=== PATIENT | female | born 1955 | race Caucasian/White ===

== ENCOUNTER → 2017-10-16 | Day surgery (SDC) | payer OTHER ==
--- NOTE | 2017-10-16 10:41 | RAD REPORT ---
EXAM DESCRIPTION: US - Guided FNA Non Breast - 10/16/2017 10:24 am CLINICAL HISTORY: E04.2 COMPARISON: Thyroid Para Parotid Gland dated 09/11/2017 FINDINGS: Preoperative diagnosis: 3 cm left thyroid nodule. Post operative diagnosis: Same. Conscious Sedation: None Fluoroscopy time: None Contrast used: None Estimated blood loss: Minimal Specimens:25 gauge FNA needles x4 The left neck was prepped and draped in the usual sterile fashion. 1% lidocaine was infiltrated into the subcutaneous tissues for local anesthesia. Real time ultrasound scanning of the left neck demonst rated 3 cm deep posterior nodule. Several additional small nodules are seen. Initial request for FNA procedure indicated isthmus nodule as well. However, on real-time position scanning, only a 5 mm nodu le was detected in the isthmus which was not accessible for FNA procedure at this time. This may be f ollowed up with routine thyroid surveillance sonography. Under ultrasound guidance, using multiple 25 gauge FNA needles, 4 specimens were obtained of the dominant nodule and sent to pathology for evalua tion. There were no complications. IMPRESSION: Successful ultrasound-guided FNA of the dominant left thyroid nodule as detailed above.
== END ==
LOC: FNA 09:26
PROVIDERS: ATTEND Otolaryngology
PROC: 07D Lymphatic and Hemic Systems, Extraction (ICD-10-PCS; principal; 2017-10-16)
PROC: BG44ZZZ Ultrasonography of Thyroid Gland (ICD-10-PCS; 2017-10-16)
DX: E04.2 Nontoxic multinodular goiter (principal); E04.1 Nontoxic single thyroid nodule
CPT/HCPCS: 76942; 88162; 88305

== ENCOUNTER 2022-04-25 05:57 | Observation (INO) | payer OTHER ==
[2022-04-19 10:17] LABS: Specific Gravity 1.007 (1.005-1.030); Urine Bilirubin NEGATIVE (Negative); Urine Blood Negative (Negative); Urine Clarity Clear (Clear); Urine Color Light-Yellow (Yellow); Urine Glucose NEGATIVE (Negative); Urine Protein NEGATIVE (Negative); Urine Urobilinogen Normal (Normal); Urine pH 6.5 (5.0-7.0)
[2022-04-19 10:23] LABS: Absolute Lymphocytes (CBC) 1.6 K/uL (0.7-4.9); Hematocrit 41.6 % (36.0-45.0); Lymphocytes % 34.4 % (15.3-44.8); MCV 94.7 fL (80-100); MPV 8.1 fL (7.6-11.3); RBC Red Blood Cell Count 4.39 M/uL (3.86-4.86)
[2022-04-19 10:25] LABS: Protime INR 0.91
[2022-04-19 10:32] LABS: Potassium 4.3 mmol/L (3.5-5.1)
[2022-04-24 11:53] LABS: SARS-CoV-2 Antigen Rapid Res Negative (Negative)
[2022-04-25] MEDS ORDERED: SCOPOLAMINE HYDROBROMIDE PATCH TD ONE (06:40)
[2022-04-25] MEDS: Ringers Lactate 1,000 ML IV ONE ×4 (06:50→11:56)
[2022-04-25] MEDS ORDERED: propofoL 200 MG/20 ML VIAL IV ONE (06:54)
[2022-04-25] MEDS ORDERED: KETAMINE HCL 500 MG/5 ML VIAL ONE (06:54)
[2022-04-25] MEDS ORDERED: FENTANYL CITR 250 MCG/5 ML ONE ×2 (06:55→09:34)
[2022-04-25] MEDS ORDERED: dexAMETHasone 10 MG/ML VIAL ONE (06:55)
[2022-04-25] MEDS ORDERED: LIDOCAINE 2% MPF 5 ML VIAL ONE (06:55)
[2022-04-25] MEDS ORDERED: MIDAZOLAM HCL 2 MG/2 ML INJ ONE (06:55)
[2022-04-25] MEDS ORDERED: NS 0.9% VIAL 20 ML ONE (06:55)
[2022-04-25] MEDS ORDERED: ONDANSETRON 4 MG/2 ML VIAL ONE (06:55)
[2022-04-25] MEDS ORDERED: ROCURONIUM 50 MG/5 ML VIAL IV ONE (06:55)
[2022-04-25] MEDS ORDERED: CEFAZOLIN 3 GM in NA CHLORIDE 0.9% 100 ML IVPB ONE (07:00)
[2022-04-25] MEDS: BUPIVACAINE 0.25% PF 30 ML VIAL ONE ×2 (07:39→08:56)
[2022-04-25] MEDS: CEFAZOLIN 3 GM in NA CHLORIDE 0.9% 100 ML IVPB ONE ×2 (07:40→08:13)
[2022-04-25] MEDS ORDERED: NA CHLORIDE 0.9% 100 ML IV ONE (08:39)
[2022-04-25] MEDS ORDERED: Ringers Lactate 1,000 ML IV ONE ×2 (09:23→11:19)
[2022-04-25] MEDS: VASOPRESSIN 20 UNIT/ML VIAL ONE ×2 (09:35→12:10)
[2022-04-25] MEDS ORDERED: CEFAZOLIN SODIUM 1 GM/VIAL ONE ×2 (11:21→11:52)
[2022-04-25] MEDS ORDERED: EPHEDRINE SULF 50 MG/ML VIAL ONE (13:03)
[2022-04-25] MEDS ORDERED: Mastisol Adhesive Liq ONE (13:26)
[2022-04-25] MEDS ORDERED: ONDANSETRON 4 MG/2 ML VIAL IV PRN (13:34)
[2022-04-25] MEDS ORDERED: HYDROCODONE/APAP 5/325 MG TAB PO PRN (13:34)
--- NOTE | 2022-04-25 13:40 | P.BOP ---
Preoperative diagnosis: Stage 3 uterovaginal/ ant/posterior wall prolapse, JASE Postoperative diagnosis: same, endometriosis Primary procedure: TLH BSO, endo rx, USLS colpopexy, posterior repair, perineorrhaphy Secondary procedure: TO MUS (TVT-O) cysto Probation And Parole Officer: Elise Miramontes Estimated blood loss: 100 Specimen: uterus tubes ovaries, endometriosis Findings: 0/+2/-2/4.5/mod/7/0/+1/-3, extensive endometriosis Anesthesia: General Complications: None Drain(s): Urinary catheter Implants: TVT-O Transferred to: Recovery Room Condition: Good
--- OUTSIDE RECORDS SUMMARY | 2022-04-25 14:19 | XMS REPORT | Continuity of Care Document ---
:1955 Author Organization [facility] t Address [address] [place] [address] Care Team Providers Name Role Phone Asked, No Pcp Primary Care Physician Unavailable HEIDY ESCALANTE Attending Clinician Unavailable Payers Payer Name Policy Type Policy Number Effective Date Expiration Date S penny COVID VACCINE [id number] 2020-04-23 00:00:00 ADMIN / TESTING Problems This patient has no known problems. Allergies, Adverse Reactions, Alerts Allergy Allergy Status Severity Reaction(s) Onset Inactive Treating Comm ents Source Name Type Date Date Clinician Penicill Propensi Active Unknown Metho di ins ty to Reaction 05-24 st adverse 00:00: [facility]osp[facility] reaction 00 l s to drug Social History Social Habit Start Date Stop Date Quantity Comments Source Sex Assigned At [birth year] [facility] 00:00:00 00:00:00 Smoking Status Start Date Stop Date Source Tobacco smoking consumption unknown [facility] Medications This patient has no known medications. Immunizations Ordered Immunization Filled Immunization Date Status Commen ts Source Name Name Covid-19 Vaccine 2020-08-[address] [facility] MRNA (PF) 12yr+ 00:00:00 Medical C enter (Pfizer/BioNTech)(IM M601) Covid-19 Vaccine 2020-04-[address] [facility] MRNA (PF) 12yr+ 00:00:00 Medical C enter (Pfizer/BioNTech)(IM M601) Procedures This patient has no known procedures. Plan of Care Planned Activity Planned Date Details Comments Source Future Scheduled 2028-12-18 DTAP/TDAP/TD VACCINES [facility] 00:00:00 (2 - Td or Tdap) [code Medic al Center = DTAP/TDAP/TD VACCINES (2 - Td or Tdap)] Future Scheduled 2022-04-[address] [facility] 00:00:00 (12+) [code = Medical Center DEPRESSION SCREENING (12+)] Future Scheduled 2022-04-02 FALLS RISK SCREENING [facility] 00:00:00 [code = FALLS RISK Medical C enter SCREENING] Future Scheduled 2022-03-19 65+ [facility] 17:29:01 VACCINE (1 - PCV) [code = 65+ PNEUMOCOCCAL VACCINE (1 - PCV)] Future Scheduled 2022-03-19 INFLUENZA VACCINE [facility] Test 17:29:01 [code = INFLUENZA VACCINE] Future Scheduled 2022-03-19 COVID-19 VACCINE (#1) [facility] Test 17:29:01 [code = COVID-19 VACCINE (#1)] Future Scheduled 2022-03-19 Hepatitis C screening [facility] Test 17:29:01 (procedure) [code = 709202083] Future Scheduled 2022-03-19 BREAST CANCER [facility] Test 17:29:01 SCREENING [code = BREAST CANCER SCREENING] Future Scheduled 2022-03-19 COLONOSCOPY SCREENING [facility] Test 17:29:01 [code = COLONOSCOPY SCREENING] Future Scheduled 2022-03-19 SHINGLES VACCINES (1 [facility] Test 17:29:01 of 2) [code = SHINGLES VACCINES (1 of 2)] Future Scheduled 2021-12-01 INFLUENZA VACCINE (#1) [facility] 00:00[facility]00 [code = INFLUENZA Medical Ce nter VACCINE (#1)] Future Scheduled 2021-01-03 COVID-19 VACCINE (3 - [facility] 00:[facility]:00 Booster for Pfizer Medical C enter series) [code = COVID-19 VACCINE (3 - Booster for Pfizer series)] Future Scheduled 2020 PNEUMOCOCCAL 65+ YRS [facility] 00:00:00 (1 - PCV) [code = Medical Ce nter PNEUMOCOCCAL 65+ YRS (1 - PCV)] Future Scheduled 2015-07-15 SHINGLES VACCINES ([address] [facility] 00:00:00 of 3) [code = SHINGLES Medic al Center VACCINES (2 of 3)] Future Scheduled 1973 HEPATITIS C SCREENING [facility] 00:00:00 [code = HEPATITIS C Medical Center SCREENING] Future Scheduled [address] [facility] 00:00:00 Counseling and Medical Cente r Screening (12+) [code = Tobacco Cessation Counseling and Screening (12+)] Future Scheduled 1955 Sigmoidoscopy [code = [facility] 00:[facility] Sigmoidoscopy] Medical Cente r Future Scheduled [address] [facility] 00:[facility] breast (procedure) [code = 996363337] Future Scheduled [address] [facility] 00:00:00 (combo) [code = CT Medical C enter Colonography (combo)] Future Scheduled [address] [facility] 00:[facility]:00 [facility] colon (procedure) [code = 228999103] Future Scheduled [address] [facility] 00:00:00 malignant ne[facility] of [facility] colon (procedure) [code = 788018045] Future Scheduled 1955 DXA SCAN [code = DXA [facility] 00:00:00 SCAN] [facility] Future Scheduled [address] [facility] 00:00:00 malignant ne[facility] of [facility] colon (procedure) [code = [id number]] Future Scheduled [address] [facility] 00:00:00 malignant ne[facility] of [facility] colon (procedure) [code = 295319435] Encounters Start End Encounter Admission Attending Care Care Encounter Source Date/Time Date/Time Type Type Clinicians Facility Department ID 2020-05-24 2020-05-24 Outpatient [facility] [id number] Clear 00:00:00 00:00:00 [facility] [address] 2020-05-13 2020-05-13 Outpatient [facility] [id number] [facility] 00:00:00 00:00:00 2020-04-23 2020-04-23 Outpatient [facility] [id number] [facility] 00:00:00 00:00:00 Results This patient has no known results.
[2022-04-25] MEDS ORDERED: HYDROMORPHONE HCL 1 MG/ML INJ ONE (14:42)
[2022-04-25] MEDS: Ringers Lactate 1,000 ML IV SCH ×2 (15:00→22:33)
[2022-04-25 15:04] VITALS: O2SAT 98
[2022-04-25 15:46] VITALS: BMI 31.4
[2022-04-25] MEDS: IBUPROFEN 600 MG TAB PO PRN (16:09)
[2022-04-25] MEDS: MORPHINE 2 MG/ML SYR IV PRN (19:51)
[2022-04-25] MEDS ORDERED: ATORVASTATIN 20 MG TAB PO SCH (21:00)
[2022-04-25] MEDS ORDERED: HOME MED 1 EA UNK (Simvastatin [Simvastatin] 40 MG Tablet) PO SCH (21:00)
[2022-04-26] MEDS ORDERED: CEFAZOLIN SODIUM 1 GM/VIAL ONE (00:02)
[2022-04-26] MEDS ORDERED: NA CHLORIDE 0.9% 100 ML ONE (00:03)
[2022-04-26] MEDS: MORPHINE 2 MG/ML SYR IV PRN ×2 (00:14→04:03)
[2022-04-26 06:06] LABS: Absolute Lymphocytes (CBC) 1.1 K/uL (0.7-4.9); Hematocrit 36.2 % (36.0-45.0); Lymphocytes % 10.7 % (15.3-44.8); MCV 93.9 fL (80-100); MPV 8.1 fL (7.6-11.3); RBC Red Blood Cell Count 3.86 M/uL (3.86-4.86)
[2022-04-26 07:42] VITALS: BP 137/64; TEMP 98.8
[2022-04-26] MEDS: IBUPROFEN 600 MG TAB PO PRN (08:53)
[2022-04-26] MEDS ORDERED: CALCIUM CARBONATE 500 MG TAB PO SCH (09:00)
[2022-04-26] MEDS ORDERED: CYANOCOBALAMIN 1,000 MCG TAB PO SCH (09:00)
[2022-04-26] MEDS ORDERED: HOME MED 1 EA UNK (Calcium Carbonate [Calcium] 600 MG Tablet) PO SCH (09:00)
[2022-04-26] MEDS ORDERED: SOLIFENACIN SUCCIN 5 MG TAB PO SCH (09:00)
[2022-04-26] MEDS ORDERED: VITAMIN D 5,000 UNIT CAP PO SCH (09:00)
[2022-04-26] MEDS ORDERED: HOME MED 1 EA UNK (Estradiol [Estrace] 42.5 GM Cream.Appl) VAG SCH (17:00)
--- NOTE | 2022-04-30 07:50 | OP ---
Date of Procedure: 04/25/2022 Surgeon: Gena Jean MD Director Fundraising: Elise Santillan. Preoperative Diagnoses: Stage III uterovaginal prolapse, anterior and posterior wall prolapse, stres s urinary incontinence. Postoperative Diagnoses: Stage III uterovaginal prolapse, anterior and posterior wall prolapse, stre ss urinary incontinence, and endometriosis. Procedures Performed: Total laparoscopic hysterectomy, bilateral salpingo-oophorectomy, endometriosi s excision, uterosacral ligament suspension, colpopexy, posterior repair with perineorrhaphy, transob turator mid urethral sling (TVT-O) cystoscopy. Anesthesia: General endotracheal. Ebl: 100. Urine Output: 300. Specimens: Uterus, tubes, ovaries, and endometriosis. No complications. Drains: Franks catheter and vaginal packing. Patient's POP-Q findings as follows: POP-Q 0+, 2, -2, 4.5, moderate 7, 0, +1, and -3. Extensive end ometriosis. On cysto, the ureters were patent for uterosacral suspension after vaginal cuff closure with V-Loc. 3 sutures were placed on each side and the topmost uterosacral stitch was placed into th e medial-most aspect of the vaginal cuff with 0 PDS sutures. Then, the second highest uterosacral mendieta spension stitch was also 2-0 PDS and 0 Ethibond was used to take the first stitch, making sure that t he suture did not pass through the vaginal epithelium. Vaginal wall apex was significantly well tens ioned without any shortening of the vaginal canal. The third stitch was one that definitely left at the anterior wall. There were good uterosacral ligaments, and therefore, the decision was made to perform the suspension at this point. Posterior repair was performed in a site-specific manner. Indications: The patient is a 66-year-old female with symptomatic uterovaginal prolapse. She had a transvaginal ultrasound and endometrial sampling was performed with the endometrial Pipelle biopsy an d there was no atypia or malignancy. We discussed about the option of preservation of uterus with va ginal prolapse repair or laparoscopic repair including the hysterectomy, bilateral salpingo-oophorect elijah. An apical suspension with uterosacral ligament if they were or sacral colpopexy. Va ginal anterior-posterior repairs as needed and a mid urethral sling. We discussed about all the bene fits and risks, comparative recurrence rates, complications of each of the procedures. Once they wer e compared and contrasted, patient wanted to proceed with a hysterectomy and apical suspension either the uterosacral ligaments or sacral colpopexy. Urodynamics were performed. Her maximal urethral cl osure pressure was 63. No demonstrate JASE, but given the POP-Q and the vaginal prolapse, the mechani sm definitely concerning for occult JASE. We consented her for mid urethral sling. After informed consent was verified, she was taken back to the OR, placed in supine fashion on the op erating table, general anesthesia was given, 2 g of Ancef were given. SCDs were placed. Abdomen was prepped with ChloraPrep; vulva, vagina, and perineum with Betadine; and draped in a sterile fashion . Time-out was done. Positioning was checked. SCDs were started and procedure was started. A large VCare was introduced into the uterus and fixed in place. Franks was placed to drain the bladd er. This area was dressed. 1 cm infraumbilical incision made with a scalpel using the open laparoscopy technique. Fascia was in cised, tagged with 0 Vicryl sutures. Peritoneum entered sharply and Sally placed and after adequate insufflation, site of entry was checked and was unremarkable. The patient was placed in Trendelenburg. Two 8 ports were placed in the right and left lower quadran ts and 10 suprapubic port, later on 3-0 Monocryl was used to tag the epiploicae of the sigmoid colon for retraction and brought out through the left upper quadrant Vahe-Meera needle. Once the entire endometriosis in the wall was visualized, there were significant implants in the broa d ligament laterally, near the round ligament on the right side more than the left side and posterior ly near the uterosacral ligaments and laterally on the peritoneum. All these implants were excised a long with the hysterectomy. Peritoneum opened up parallel to the IP ligament and then dissection carried to the round ligament. Dissection of the peritoneum between the IP and the ureter was done at the pelvic brim and once the p edicle of the IP was isolated, this was taken down with the help of the LigaSure. Then, the posterio r peritoneum taken down to the level of the round ligament. Round ligament taken down with the LigaS ure. Then posterior peritoneum dissected, carefully dissecting the ureter laterally taking the perit dotson implants and dissecting them medially away from the ureter and then anteriorly the peritoneum o pened up to the level of the anterior vaginal wall, where there was the prolapse that was evident. H owever, the cup was identified. The anterior vaginal wall in the midline was identified, peritoneum opened up. Then once the bladder dissection was started, this was connected to the left side to open the rest of the anterior broad ligament. The broad ligament was completely taken down to skeletoni ze the vessels. Vessels were taken down with the help of the LigaSure and the rest of the cardinal l igaments were taken down as well with the same device. On the opposite side, similar dissection was performed dissecting the endometriosis in the anterior p eritoneum, anterior peritoneum connected to the bladder flap. Then posterior peritoneum taken down a s well. The IP was isolated, taken down, round ligament taken down, vessels skeletonized, taken down , and circumferential colpotomy with a monopolar hook blade, specimen detached and pulled out through the vagina. The vaginal cuff was closed with 2-0 Vicryl sutures at both angles, simple stitches and then 2-0 V-Lo c in a continuous running 2 layered fashion. With the vaginal retractor to expose the anterior wall, the bladder was dissected off at least 3.5 cm from the apex in the center and on both sides carefully staying between the bladder and the vagina c loser to the vagina but not entering the vesicovaginal space. Once this dissection was done, then we nt to the uterosacrals. 3-0 Monocryl was placed on the right uterosacral picked for retraction and then 0 Ethibond suture was placed outside in and inside out and then passed through the posterior vaginal connective tissue and the anterior wall vaginal connective tissue. The suture was held through the side port. Then 2-0 P DS suture was taken a centimeter higher to that in a similar fashion and then attached to the anterio r-posterior silva through and through, a centimeter medial to the first stitch on the cup. Similar t wo sutures were taken on the opposite side as well. These were tied down. Vaginal exam was performe d. Anterior wall in the center was still not well suspended. So at this point, a third stitch was d ecided. After changing gloves, a third 0 PDS suture was placed, simple suture, another 1.5 cm proxi mal to the second stitch on the uterosacral high. Then, this was brought down and passed through the posterior vaginal wall, anterior vaginal wall imbricated and this was an excellent suspension once t hese 2 were tied down, culdoplasty was performed. Cystoscopy was performed as well with 30-degree lens and normal saline. There were excellent jets of urine from both ureteric orifices. No evidence of any trauma to the bladder. After changing the lens, sites were all irrigated and suctioned, ports were removed and incisions artis sed, 0 Vicryl sutures were tied to each other on the umbilical suture, then proceeded to place a simp le 0 Vicryl suture on the fascia at the suprapubic site. All the skin incisions closed with the help of 4-0 Vicryl interrupted. Anterior wall and apex were very well suspended. There was no need for any anterior pair. Mid urethral area was picked up with the 2 Allis clamps, injected with dilute vasopressin. Midline m id urethral 1.5 cm incision was made with a scalpel all the way to the connective tissue. The legs w ere placed in high lithotomy and the tracts were created at a 45-degree angle to the horizontal and v ertical planes towards the ipsilateral obturator space hugging the inferior pubic ramus. Once the tr ack was created and membrane was perforated, the track was opened to accommodate the sling in a flat fashion, similar dissection on the opposite side as well. Ring guide placed past and exited at an ar ea of 2 cm lateral to the groin fold. Once this was done, the plastic dilator was cut, mesh and the sheaths were held on both sides, tensioned appropriately with the help of Rafael in the center, plastic sheaths pulled out gently and the mesh was tensioned in an optimal fashion. Sutures were used, 3-0 Vicryl to close the vaginal incision in a continuous locked fashion. Groin sites closed with Dermabo nd. Cystoscopy was performed and there was no evidence of any trauma to the bladder mesh and the bladder. So, bladder was drained. Franks was placed. Started with a posterior repair, after dilute vasopressin was injected into the lower 2/3 of the vagi na and on the perineum, a raymon-shaped incision was made in this area all the way down to the perin eum just outside of the vestibule. Then vaginal epithelium was de-epithelialized and the vaginal epi thelium was raised from the underlying connective tissue and scar dissected away and exposed. A site -specific repair was done with 2-0 PDS in a continuous running fashion bringing the right lateral de fect, reattaching it to the perineal body. The perineal body reconstruction was done with interrupte d 2-0 Vicryl sutures x3, then 2-0 Vicryl was used to close the vaginal epithelium continuously bringi ng it down as an advancement flap and closing it sideways from left to right. 3-0 Vicryl was used to close the vertical part of the perineal scar in a deeper fashion and subcuticular fashion. Rectal e xam was performed. No evidence of any trauma or foreign body. Vaginal packing was placed. The george ent was recovered from anesthesia and taken to PACU in stable condition. ROBERTO/REGGIE Voice ID: [id number] Report ID: [id number]
== END 2022-04-26 10:13 | disposition home or self-care (01) ==
LOC: OR 05:57 → 2ND-WC 14:16
PROVIDERS: ADMIT Obstetrics & Gynecology; ATTEND Obstetrics & Gynecology
PROC: 0TSD0ZZ Reposition Urethra, Open Approach (ICD-10-PCS; 2022-04-25)
PROC: 0UT94ZZ Resection of Uterus, Percutaneous Endoscopic Approach (ICD-10-PCS; 2022-04-25)
PROC: 0UT24ZZ Resection of Bilateral Ovaries, Percutaneous Endoscopic Approach (ICD-10-PCS; 2022-04-25)
PROC: 0UT74ZZ Resection of Bilateral Fallopian Tubes, Percutaneous Endoscopic Approach (ICD-10-PCS; 2022-04-25)
PROC: 0JQC0ZZ Repair Pelvic Region Subcutaneous Tissue and Fascia, Open Approach (ICD-10-PCS; 2022-04-25)
PROC: 0DBW4ZZ Excision of Peritoneum, Percutaneous Endoscopic Approach (ICD-10-PCS; 2022-04-25)
PROC: 0USG7ZZ Reposition Vagina, Via Natural or Artificial Opening (ICD-10-PCS; principal; 2022-04-25 07:30)
DX: N81.3 Complete uterovaginal prolapse (principal); N39.3 Stress incontinence (female) (male); N32.81 Overactive bladder; N80.399 Endometriosis of the pelvic peritoneum, other specified sites, unspecified depth; Z20.822 Contact with and (suspected) exposure to COVID-19
CPT/HCPCS: 57283; 57288; 58571; 57250; 85025 ×2; 80048; 36415 ×3; 86900; 86850; 85610; 86901; 88307; 85730; 81003; 87811; 58662; G0379; J2704; J2001; J2250; J3010 ×2; J1100; J2270 ×3; A4216; J1170; G0378 ×3; J7120 ×5; J2405; J0690 ×4; 88305